=== PATIENT | female | born 1985 | race Caucasian/White ===

== ENCOUNTER → 2020-07-21 02:14 | Outpatient (CLI) | payer OTHER, SELFPAY ==
[2020-07-21 20:23] LABS: SARS-CoV-2 RNA PCR Negative
== END ==
PROVIDERS: PCP Internal Medicine; Visit Provider Obstetrics & Gynecology
DX: Z01.812 Encounter for preprocedural laboratory examination (principal); Z20.822 Contact with and (suspected) exposure to COVID-19
CPT/HCPCS: C9803; U0003; U0005

== ENCOUNTER 2020-07-25 00:45 | Day surgery (SDC) | payer OTHER, SELFPAY ==
[2020-07-16 10:45] VITALS: BMI 23.1
--- NOTE | 2020-07-24 15:37 | WPDANESEPPF ---
Anes - Initial Pre Proc Eval Procedure: Operation Date: 07/25/20 09:00 Proposed Procedures p Laparoscopic Bilateral Tubal Ligation with Cautery, - Everardo Washburn MD s Hysteroscopy with Jamila Endometrial Ablation - Everardo Washburn MD Date/Time: 07/24/20 15:37 Surgeon: Everardo Washburn MD Pre Op Diagnosis: menorrhaghia, sterilization Patient Data Age: 34 Gender: F Height: 1.7 m Weight: 67 kg Allergies Allergy/AdvReac Type Severity Reaction Status Date / Time No Known Allergies Allergy Unverified 07/16/20 10:48 Home Medications Medication Instructions Recorded Confirmed Type escitalopram oxalate 10 mg PO DAILY 07/16/20 07/16/20 History brxpnfghpqno-adg-xgzj-FA-vit K 1 tablet PO DAILY 07/16/20 07/16/20 History [Adults Multivitamin] Patient hx anesthesia problems: none Family hx anesthesia problems: none PMFSH Past Medical History Medical History (Updated 07/24/20 @ 15:38 by Rsahard Edwards MD) Anxiety Depression Family History Family History (Updated 06/15/17 @ 20:56 by DOCTOR UNKNOWN) Mother Family history of osteoporosis Other Diabetes mellitus Family history of cardiovascular disease Family history of malignant neoplasm of breast Social History Social History Smoking status: Never smoker Second hand tobacco smoke exposure: No Alcohol intake: current Substance use: former Living arrangements: with family Gender identity (if verbalized by the patient): Female Spiritual care concerns: No Anes - Eval Final PreProcedure Day of Procedure 07/24/20 15:37 Patient weight: normal Heart: regular rate and rhythm Lungs: clear to auscultation and normal air movement Airway: Mallampati scale class II Neurological: alert and oriented Last oral intake: >/= 8 hours ASA classification: II Emergent: no Anesthetic plan: proceed Anesthesia type and monitoring: general ETT Informed Consent: The patient's anesthetic plan and its attendant risks and benefits were discussed with the patient/family/POA. Questions were solicited and answers provided to the satisfaction of the patient/family/POA.
[2020-07-25] VITALS (8 sets, daily range): BP systolic 100–122; BP diastolic 66–80; PULSE 66–103; RESP 16–20; TEMP 36.4–37.1; O2SAT 99–100
[2020-07-25] MEDS: LACTATED RINGERS 1,000 ML 30 ML IV CONT ×2 (07:45→09:55)
[2020-07-25] MEDS: KETOROLAC 15 MG/ML VIAL (*BKC) IV PUSH (07:58)
[2020-07-25] MEDS: ACETAMINOPHEN 500 MG TABLET 1000 MG PO (07:59)
--- NOTE | 2020-07-25 08:40 | WPDHPUPDATE1 ---
History and Physical Update Update Date/Time: 07/25/20 08:40 History and Physical has been reviewed, including an updated exam of the patient. There are NO changes in the patient's condition. Risks, benefits, and alternatives have been discussed and questions answered. Patient agrees to proceed with procedure.
--- NOTE | 2020-07-25 09:57 | PM.PROC ---
Procedure Note - Detailed Date of procedure: 07/25/20 Pre-op diagnosis: menorrhaghia, sterilization Post-op diagnosis: same Procedure performed: Laparoscopic bilateral tubal ligation, Endometrial Ablation Description of procedure: Patient was taken the operating room. She has prepped draped in the dorsal lithotomy position after induction of general anesthesia. A 5 mm abdominal incision was made in left upper quadrant of the abdomen with scalpel. A 5 mm trocars inserted the intra-abdominal cavity under direct visualization of the scope. Pneumoperitoneum was achieved. A 5 mm periumbilical incision was made using a scalpel on the abdominal scan. A 5 mm trocar was inserted the intra-abdominal cavity under visualization of the scope. The fallopian tube was grasped with the bipolar cautery in the ampullary region. It was completely desiccated in a 1.5 cm area of the fallopian tube. This was performed in identical fashion on the contralateral side. The instruments were withdrawn. The pneumoperitoneum was reduced. The trocars were removed. The skin was closed with subcuticular 4 Monocryl. This incisions were covered with Dermabond. Our attention was then turned to the endometrial ablation portion of the procedure. A speculum was placed in the vagina. The cervix was grasped with a tenaculum. The cervix was dilated to approximately 8 mm with Cruz dilators. The hysteroscope was inserted. And the below findings were noted. Measurements of the cervix were taken using the uterine sound and the hysteroscope. The intrauterine cavity measurements were entered into the hand piece of the device. The device was inserted the intrauterine cavity. The array was expanded. The balloon cuff was inflated. The uterus was airtight. The energy and safety cycles within initiated. They were completed under 3 minutes. The balloon cuff was collapsed, the array was collapsed, and the device was removed the uterine cavity. the hysteroscope was reinserted and the cavity was well desiccated, it was clearly observed. Hysteroscope was withdrawn. The tenaculum was removed. The speculum was removed. The patient tolerated the procedure well. She was taken to recover room in stable condition. Anesthesia: GETA Surgeon: Everardo Washburn MD Estimated blood loss (mL): 10 Drains: No Packing: No Pathology: none sent Complications: No immediate complications Condition: stable Disposition: PACU Findings: Normal female pelvic anatomy.
[2020-07-25] MEDS: fentaNYL CITRATE INJ (*CRX) 100 MCG/2 ML VIAL 25 MCG IV PUSH ×4 (10:19→10:34)
[2020-07-25] MEDS: diphenhydrAMINE HCl CAP 25 MG CAPSULE PO (11:17)
[2020-07-25] MEDS: oxyCODONE HCL (*CRX) 5 MG TAB IR PO (11:17)
== END 2020-07-25 11:37 | disposition home or self-care (01) ==
PROVIDERS: PCP Internal Medicine; Visit Provider Obstetrics & Gynecology
PROC: (CPT 58671; principal; 2020-07-25 09:00)
PROC: 0U5B8ZZ Destruction of Endometrium, Via Natural or Artificial Opening Endoscopic (ICD-10-PCS; CPT 58563; 2020-07-25 09:00)
DX: N92.0 Excessive and frequent menstruation with regular cycle (principal); Z30.2 Encounter for sterilization; F41.8 Other specified anxiety disorders
CPT/HCPCS: 58563; 58670; A9270; C9803; J0330; J1100; J1170; J1885; J2250; J2405; J2704; J3010; J7030; J7120; U0003; U0005

== ENCOUNTER 2022-03-24 12:32 | Emergency (ER) | payer OTHER, SELFPAY ==
--- NOTE | ~2022-03-24 | XR_ITS ---
EXAMINATION: XR chest 2V DATE: 03/24/2022 12:58 INDICATION: Cough and wheezing. TECHNIQUE: Frontal and lateral views of the chest were obtained. COMPARISON: Chest 2 views 08/08/2011 FINDINGS: The chest demonstrates clear lungs without pneumonia, pleural effusion, or pneumothorax. Th e heart size is normal. IMPRESSION: 1. No acute cardiopulmonary disease. Reviewed, dictated and finalized at location A. BITS COORDINATOR
[2022-03-24 12:37] VITALS: BP 123/82; PULSE 63; RESP 20; TEMP 35.8; O2SAT 100
--- NOTE | 2022-03-24 12:37 | ED.URI ---
HPI - URI/Sore Throat General Chief Complaint: Upper Respiratory Infection Stated Complaint: COUGH/HURTS TO BREATHE/FEVER/BODY ACHES/CHILLS Time Seen by Provider: 03/24/22 12:37 Source: patient and RN notes reviewed History of Present Illness HPI Narrative: Patient is a 36-year-old female who presents to urgent care with complaints of cough, body aches, fever, chills. Patient states that last week her whole family was out with flu-like symptoms and a residual cough has gotten worse. Patient states that she had COVID 4 months ago and had a very difficult time getting over the cough and shortness of breath from COVID. Patient has not had a chest x-ray since her breathing issues. Patient states that for the last 4 days her cough has worsened. Patient did a [facility] tele visit 2 days ago and was placed on Tessalon Perles, prednisone and given a refill of her albuterol inhaler. Patient states that she is having pain with deep breathing. No other acute complaints. Denies any recent fevers. No acute distress noted. Patient aware of the plan of care. Some parts of this dictation were generated by voice recognition software and may contain typographical and/or grammatical inaccuracies. Related Data Home Medications Medication Instructions Recorded Confirmed escitalopram oxalate 10 mg tablet 10 mg PO DAILY 07/16/20 03/24/22 aqbuslnfumik-Vn-kaqe-minerals 1 tablet PO DAILY 09/25/21 03/24/22 albuterol sulfate 90 mcg/actuation 2 inh inhalation DIRECTED 03/24/22 03/24/22 aerosol inhaler benzonatate 100 mg capsule 100 mg PO DIRECTED 03/24/22 03/24/22 Allergies Allergy/AdvReac Type Severity Reaction Status Date / Time No Known Allergies Allergy Verified 03/24/22 12:44 Review of Systems Review of Systems: CONSTITUTIONAL: Denies fever, chills, or sweats. Reports of fatigue EYES: Denies visual changes, redness, or discharge. ENT: Reports of postnasal drainage, congestion, mild sore throat CARDIOVASCULAR: Denies chest pain, palpitations, or edema. RESPIRATORY: Reports of cough, congestion, wheezing GASTROINTESTINAL: Denies abdominal pain, nausea, vomiting, or diarrhea. GENITOURINARY: Denies dysuria or hematuria. SKIN: Denies rash or itching. MUSCULOSKELETAL: Denies back pain, joint pain. Reports body aches NEUROLOGIC: Denies headache, numbness, or weakness. All other systems reviewed are negative, except as documented in HPI. [facility] Past Medical History Medical History (Updated 03/24/22 @ 13:14 by JOSE ALBERTO Hodge) Anxiety Depression Surgical History Surgical History (Updated 09/25/21 @ 09:22 by Sandra Gordon MA) H/O cardiac catheterization 2005 H/O tubal ligation tubal ligation/ablation 2020 Family History Family History (Updated 09/25/21 @ 09:21 by Sandra Gordon MA) Father Cirrhosis of liver Alcoholism Cardiac arrest Other Diabetes mellitus Family history of cardiovascular disease Family history of malignant neoplasm of breast Hypertension Social History Social History (Updated 09/25/21 @ 09:20 by Sandra Gordon MA) Smoking status: Never smoker Second hand tobacco smoke exposure: No Alcohol intake: current Substance use: former Additional occupation/education comments: Customer Service Gender identity (if verbalized by the patient): Female Spiritual care concerns: No Comments At the time of my signature, I reviewed and agree with the nursing past medical, surgical, social, and family history. There is no relevant family history pertinent to the patient complaint. Exam Narrative: GENERAL: This is a well-nourished, well-developed patient, in no apparent distress. HEAD: normocephalic, atraumatic. EYES: PERRL. Sclera clear/white. Vision is grossly intact. EARS: External ears normal, auditory canals clear and without drainage, TMs normal without perforation. Hearing grossly intact. NOSE: External nose normal with no obvious nasal discharge
== END 2022-03-24 13:18 | disposition home or self-care (01) ==
PROVIDERS: Emergency Provider Nurse Practitioner Family; PCP Internal Medicine
DX: J40 Bronchitis, not specified as acute or chronic (principal)
CPT/HCPCS: 71046; 99213; G0463

== ENCOUNTER 2023-12-09 14:01 | Emergency (ER) | payer OTHER, SELFPAY ==
--- NOTE | 2023-12-09 14:06 | ED.URI ---
HPI - URI/Sore Throat General Chief Complaint: Upper Respiratory Infection Stated Complaint: SORE THROAT History of Present Illness HPI Narrative: 38 y/o female presented for c/o sore throat, onset yesterday. States she noticed white patches on tonsils yesterday, and today she woke with throat feeling 'on fire.' Started with nasal congestion today. Took Tylenol. Denies difficulty maintaining secretions. Denies cough, sob, n/v/d/f/c. Related Data Home Medications Medication Instructions Recorded Confirmed escitalopram oxalate 10 mg tablet 10 mg PO DAILY 07/16/20 12/09/23 nkespqxtmjdx-Cq-luuu-minerals 1 tablet PO DAILY 09/25/21 12/09/23 albuterol sulfate 90 mcg/actuation 2 inh inhalation DIRECTED 03/24/22 12/09/23 aerosol inhaler Allergies Allergy/AdvReac Type Severity Reaction Status Date / Time No Known Allergies Allergy Verified 12/09/23 14:22 Review of Systems Review of Systems: CONSTITUTIONAL: Denies body aches, fever, chills, or sweats. EYES: Denies visual changes, redness, or discharge. ENT: reports sore throat Denies rhinorrhea, congestion, or otalgia. CARDIOVASCULAR: Denies chest pain, palpitations, or edema. RESPIRATORY: Denies dyspnea. GASTROINTESTINAL: Denies abdominal pain, nausea, vomiting, or diarrhea. SKIN: Denies rash, itching, or wounds. MUSCULOSKELETAL: Denies back pain, joint pain, or myalgia. NEUROLOGIC: Denies headache PMFSH Past Medical History Medical History Anxiety Depression Surgical History Surgical History H/O cardiac catheterization 2005 H/O tubal ligation tubal ligation/ablation 2020 Family History Family History Father Cirrhosis of liver Alcoholism Cardiac arrest Other Diabetes mellitus Family history of cardiovascular disease Family history of malignant neoplasm of breast Hypertension Social History Social History Smoking status: Never smoker Second hand tobacco smoke exposure: No Alcohol intake: current Substance use: former Living arrangements: with family Occupation/Education: occupation Additional occupation/education comments: Customer Service Gender identity (if verbalized by the patient): Female Spiritual care concerns: No Exam Narrative: GENERAL: mildly Ill-appearing, no acute distress. EYES: conjunctivae clear ENT: Mucous membranes moist. TMs pearly dee with normal light reflex bilaterally; no tragal tenderness. Oropharynx severely erythematous without lesions. Tonsils enlarged 2+ with exudate. No drooling, no hoarseness, no trismus, uvula midline. No tripod positioning, hot potato voice, or soft palate swelling. NECK: Supple. bilateral anterior cervical lymphadenopathy CHEST: Clear to auscultation, breath sounds equal. No respiratory distress, speaks in full sentences. HEART: Regular rate and rhythm. No murmur heard. SKIN: Warm, dry, no rash. NEURO: Alert and oriented x3. Course Course Emergency Course: Patient is aware of diagnosis, understands and agrees to treatment plan. Anticipatory guidance given. Patient agrees to follow-up as directed and is aware of reasons to seek care at the emergency department. Portions of this record may have been created with voice recognition software Level of Care: Express Care Visit MDM - URI/Sore Throat MDM Narrative Medical decision making narrative: POS strep result reviewed with pt. Advise supportive treatments. Patient is appropriate for outpatient treatment and follow-up. Differential Diagnosis Differential diagnosis: Likely upper respiratory infection, viral infection and pharyngitis Discharge Plan Discharge Clinical Impression: Strep pharyngitis Patient Disposition: Home, Self-Care Condition: Stable In
[2023-12-09 14:14] VITALS: BP 116/72; PULSE 77; RESP 16; TEMP 36.6; O2SAT 100
== END 2023-12-09 14:26 | disposition home or self-care (01) ==
PROVIDERS: Emergency Provider Nurse Practitioner Family; PCP Internal Medicine
DX: J02.0 Streptococcal pharyngitis (principal); F41.9 Anxiety disorder, unspecified; F32.A Depression, unspecified
CPT/HCPCS: 87880; 99213; G0463

== ENCOUNTER 2024-03-21 16:15 | Emergency (ER) | payer OTHER, SELFPAY ==
[2024-03-21 16:38] VITALS: BP 140/90; PULSE 66; RESP 15; TEMP 36.3; O2SAT 100
--- NOTE | 2024-03-21 16:45 | ED.FEMALEGU ---
HPI - Female Genitourinary General Chief complaint: Urogenital-Female Stated complaint: FLANK PAIN/LOW ABD PAIN/SORE THROAT Time Seen by Provider: 03/21/24 16:45 Source: patient Mode of arrival: ambulatory Limitations: no limitations History of Present Illness HPI Narrative: 38-year-old female presents with complaint of fatigue, body aches, sore throat starting this morning. Patient reports that she has had urinary dysuria, irritation since yesterday. Patient was in hot tub over the weekend and also had intercourse following that. Concerned she may have a yeast infection or urinary tract infection. Tried [id number] Monistat last night with no relief. Afebrile. All systems reviewed and negative except as noted above. Related Data Home Medications Medication Instructions Recorded Confirmed escitalopram oxalate 10 mg tablet 10 mg PO DAILY 07/16/20 03/21/24 hbemrovcagcy-Pk-ccue-minerals 1 tablet PO DAILY 09/25/21 03/21/24 Allergies Allergy/AdvReac Type Severity Reaction Status Date / Time No Known Allergies Allergy Verified 03/21/24 16:33 Review of Systems Review of Systems: CONSTITUTIONAL: Denies fever, chills, or sweats. EYES: Denies visual changes, redness, or discharge. ENT: Denies rhinorrhea, congestion. Reports sore throat. Denied otalgia. CARDIOVASCULAR: Denies chest pain, palpitations, or edema. RESPIRATORY: Denies cough or dyspnea. GASTROINTESTINAL: Denies abdominal pain, nausea, vomiting, or diarrhea. GENITOURINARY: Reports dysuria. Denies hematuria. SKIN: Denies rash or itching. MUSCULOSKELETAL: Denies back pain, joint pain. Reports myalgia. NEUROLOGIC: Denies headache, numbness, or weakness. PSYCHIATRIC: Denies anxiety or depression. All other systems reviewed are negative, except as documented in HPI. [facility] Past Medical History Medical History Anxiety Depression Surgical History Surgical History H/O cardiac catheterization 2005 H/O tubal ligation tubal ligation/ablation 2020 Family History Family History Father Cirrhosis of liver Alcoholism Cardiac arrest Other Diabetes mellitus Family history of cardiovascular disease Family history of malignant neoplasm of breast Hypertension Social History Social History Smoking status: Never smoker Second hand tobacco smoke exposure: No Alcohol intake: current Substance use: former Living arrangements: with family Occupation/Education: occupation Additional occupation/education comments: Customer Service Gender identity (if verbalized by the patient): Female Spiritual care concerns: No Comments At time of signature, agree with nursing past medical, surgical, social and family history. There is no relevant family history pertinent to the presenting complaint. Exam Narrative: GENERAL: This is a well-nourished, well-developed patient, in no apparent distress. HEAD: normocephalic, atraumatic. EYES: PERRL. Sclera clear/white. Vision is grossly intact. EARS: External ears normal, auditory canals clear and without drainage, TMs normal without perforation. Hearing grossly intact. NOSE: External nose normal with no obvious nasal discharge, nares without redness, no rhinorrhea. THROAT: Mucous membranes moist, erythema with mild swelling. No exudates. NECK: Neck supple, non-tender without lymphadenopathy, masses or thyromegaly. CARDIOVASCULAR: Regular rate and rhythm without murmurs, gallops, or rubs. RESPIRATORY: Clear to auscultation. Breath sounds equal bilaterally. No wheezes, rales, or rhonchi. SKIN: warm, Dry, intact with no suspicious lesions or rash, good texture and turgor. NEURO: awake, alert, and oriented to person, place and time. There were no obvious focal neurologic abnormalities. EXTREMITIES: No joint tenderness, effusion, or edema noted. Course Course Level of Care: Express Care Visit Vital Signs Vital signs: Vital Signs Temperature 36.3 C L 03/21/24 16:38 Pulse Rate 66 03/21/24 16:38 Respiratory Rate 15 03/21/24 16:38 Blood Pressure 140/90 03/21/24 16:38 Pulse Oximetry 100 03/21/24 16:38 Oxygen Delivery Room Air 03/21/24 16:38 Temperature 36.3 C L 03/21/24 16:38 Pulse Rate 66 03/21/24 16:38 Respiratory Rate 15 03/21/24 16:38 Blood Pressure 140/90 03/21/24 16:38 Pulse Oximetry 100 03/21/24 16:38 Oxygen Delivery Room Air 03/21/24 16:38 Reviewed MDM - Female Genitourinary MDM Narrative Medical decision making narrative: Patient is aware of diagnosis, understands and agrees to treatment plan. Anticipatory guidance given. Patient agrees to follow-up as directed and is aware of reasons to seek care at the emergency department. Portions of this record may have been created with voice recognition software Positive rapid strep. Patient's urine dip 3+ leukocytes. Urine culture ordered. Will treat patient with Augmentin to treat for both strep throat and urinary tract infection. Differential Diagnosis Differential diagnosis: Likely urinary tract infection Discharge Plan Discharge Clinical Impression: Urinary tract infection, Strep throat Patient Disposition: Home, Self-Care Condition: Stable Instructions: Antibiotic Form, Urinary Tract Infection in Women (ED), Strep Throat (ED) Additional Instructions: Your strep test was positive today. Your COVID and flu test were negative. Your urinalysis showed results concerning for urinary tract infection. Take antibiotic as prescribed until gone. Change toothbrush after taking antibiotic for 24 hours. Take ibuprofen or Tylenol every 6-8 hours as needed for pain. Drink at least 64 oz of water a day. Follow-up with your primary care physician if symptoms are not improving. Prescriptions: New amoxicillin-pot clavulanate [Augmentin] 500-125 mg tablet 1 tablet PO BID 10 Days Qty: 20 0RF fluconazole 150 mg tablet 150 mg PO Q72H Qty: 2 0RF No Action guivnslaotws-Zr-faoe-minerals Tablet 1 tablet PO DAILY escitalopram oxalate 10 mg tablet 10 mg PO DAILY Follow-up/Referrals: Pilar Price MD [Primary Care Provider] - Stand Alone Forms: Work/School Release IP Time of Disposition: 16:55
[2024-03-21 17:36] LABS: EDCOVIDSCREEN Negative (Negative); EDINFLUASCREEN Negative (Negative); EDINFLUBSCREEN Negative (Negative); EDSTREPNEGPOS1 Positive (Negative); EDUAAPPEAR Clear; EDUABILI Negative (Negative); EDUABLOOD Trace (Negative); EDUACOLOR1 Yellow; EDUAGLUCOSE Negative (Negative); EDUAKETONE 1+ (Negative); EDUALEUKO 3+ (Negative); EDUANITRATE Negative (Negative); EDUAPROTEIN 1+ (Negative); EDUAUROBILI 0.2
== END 2024-03-21 17:00 | disposition home or self-care (01) ==
PROVIDERS: Emergency Provider Nurse Practitioner Family; PCP Internal Medicine
DX: N39.0 Urinary tract infection, site not specified (principal); J02.0 Streptococcal pharyngitis; Z20.822 Contact with and (suspected) exposure to COVID-19; F41.9 Anxiety disorder, unspecified; F32.A Depression, unspecified
CPT/HCPCS: 81003; 87081; 87426; 87804; 87880; 99213; G0463

== ENCOUNTER 2025-02-16 12:54 | Emergency (ER) | payer OTHER, SELFPAY ==
[2025-02-16 13:00] VITALS: BP 120/79; PULSE 60; RESP 14; O2SAT 100
[2025-02-16 13:46] LABS: EDCOVIDSCREEN Negative (Negative); EDINFLUASCREEN Negative (Negative); EDINFLUBSCREEN Negative (Negative); EDSTREPNEGPOS1 Negative (Negative)
--- NOTE | 2025-02-16 16:40 | ED_ITS ---
HPI - URI/Sore Throat General Chief Complaint: Upper Respiratory Infection Stated Complaint: Sore Throat Time Seen by Provider: 02/16/25 13:50 Source: patient and RN notes reviewed Mode of arrival: ambulatory Limitations: no limitations History of Present Illness HPI Narrative: [age] year old female presents Express Care complaining of upper respiratory symptoms for approximately 3 days. Patient reports body aches, chills, cough, sore throat, right ear pain, congestion the last 3 days. Patient says symptoms are not improving. Patient denies any fevers, nausea vomiting, diarrhea, abdominal pain, urinary symptoms, chest pain, difficulty breathing, any other upper respiratory symptoms, or any other symptoms. Patient taking [id number] cold/flu medication with some relief. Patient has also been using Afrin to help with congestion. Patient denies any significant past medical problems. Related Data Home Medications ?Medication ?Instructions ?Recorded ?Confirmed ?Last Taken ?Type escitalopram oxalate 10 mg tablet 10 mg PO DAILY 07/1602/16/25 07/24/20 21:00 History buspirone 10 mg tablet mg 02/16/25 Unknown History Allergies Allergy/AdvReac Type Severity Reaction Status Date / Time No Known Allergies Allergy Verified 02/16/25 13:04 Review of Systems Review of Systems: Per HPI All other systems reviewed are negative, except as documented in HPI. [facility] Past Medical History Medical History Depression Anxiety Surgical History Surgical History H/O tubal ligation tubal ligation/ablation 2020 H/O cardiac catheterization 2005 Family History Family History Father Cirrhosis of liver Alcoholism Cardiac arrest Other Diabetes mellitus Family history of cardiovascular disease Family history of malignant neoplasm of breast Hypertension Social History Social History Smoking status: Never smoker Second hand tobacco smoke exposure: No Alcohol intake: current Substance use: former Living arrangements: with family Occupation/Education: occupation Additional occupation/education comments: Customer Service Gender identity (if verbalized by the patient): Female Spiritual care concerns: No Comments At the time of my signature, I reviewed and agree with the nursing past medical, surgical, social, and family history. There is no relevant family history pertinent to the patient complaint. Exam Narrative: GENERAL: This is a well-nourished, well-developed adult, in no apparent distress. They are non ill-appearing, nontoxic appearing. HEAD: normocephalic, atraumatic. EYES: Sclera clear/white. Vision is grossly intact. Conjunctiva normal bilaterally. Extraocular movements intact. EARS: External ears normal, auditory canals clear and without drainage, TMs without erythema or perforation. Hearing grossly intact. NOSE: External nose normal with no obvious nasal discharge, nasal turbinates erythematous, no rhinorrhea. THROAT: Mucous membranes moist, posterior pharynx erythematous without exudate. Uvula is midline. Postnasal drip present. NECK: Neck supple, non-tender without lymphadenopathy, masses or thyromegaly. CARDIOVASCULAR: Regular rate and rhythm without murmurs, gallops, or rubs. RESPIRATORY: Clear to auscultation. Breath sounds equal bilaterally. No wheezes, rales, or rhonchi. SKIN: warm, Dry, intact with no suspicious lesions or rash, good texture and turgor. NEURO: awake, alert, and oriented to person, place and time. There were no ob vious focal neurologic abnormalities. EXTREMITIES: No joint tenderness, effusion, or edema noted. BACK: Nontender without deformity. Course Course Emergency Course: Portions of this record may have been created with voice recognition software Level of Care: Express Care Visit Vital Signs Vital signs: Vital Signs Pulse Rate 60 02/16/25 13:00 Respiratory Rate 14 02/16/25 13:00 Blood Pressure 120/79 02/16/25 13:00 Pulse Oximetry 100 02/16/25 13:00 Oxygen Delivery Room Air 02/16/25 13:00 Pulse Rate 60 02/16/25 13:00 Respiratory Rate 14 02/16/25 13:00 Blood Pressure 120/79 02/16/25 13:00 Pulse Oximetry 100 02/16/25 13:00 Oxygen Delivery Room Air 02/16/25 13:00 MDM - URI/Sore Throat MDM Narrative Medical decision making narrative: Rapid COVID, flu, strep were negative. Throat culture is pending. Symptoms likely viral in etiology. Discussed supportive therapy. Discussed physical exam findings. Advised supportive measures and signs/symptoms to go to the ER. Pt is appropriate for outpt treatment and f/u. Differential Diagnosis Differential diagnosis: Likely upper respiratory infection, otitis media, sinusitis, viral infection and pharyngitis Lab Data Attestation: I reviewed the patient's lab results. Labs: Lab Results 02/16/25 Range/Units 13:44 POC Influenza A Ag Negative (Negative) POC Influenza B Ag Negative (Negative) POC SARS CoV-2 Ag Negative (Negative) POC Grp A Strep Screen Negative (Negative) Discharge Plan Discharge Clinical Impression: Upper respiratory infection Qualifiers: URI type: unspecified viral URI Qualified Code(s): J06.9 - Acute upper respiratory infection, unspecified Patient Disposition: Home Condition: Stable Instructions: Upper Respiratory Infection (ED) Additional Instructions: Your rapid strep swab was negative today at [facility]. You will be notified in a few days if the culture comes back positive for strep, and appropriate antibiotics will be called in for you at that time. Your symptoms are likely due to a viral illness, which is not treated with antibiotics. Viral symptoms can be present for up to 10-14 days. Take Tylenol ibuprofen as needed for fever or pain, follow instructions on the bottle. Do not take any additional Tylenol if your taking DayQuil and NyQuil or its generics, as it already contains Tylenol in it. May do Flonase 2 sprays each nostril daily to help with congestion or you may also try azelastine antihistamine spray 2 sprays each nostril daily. Do not use Afrin for more than 3 days in a row were will cause rebound congestion. Rest and stay hydrated. Follow up with your PCP in 3-5 days if symptoms are not improving. Go to the ER immediately if you developed chest pain, nausea, vomiting, difficulty breathing or swallowing, fevers, or any serious concerns. Patient Language: Nauruan Prescriptions: No Action buspirone 10 mg tablet escitalopram oxalate 10 mg tablet 10 mg PO DAILY Follow-up/Referrals: Pilar Price MD [Primary Care Provider, Internal Medicine] Time of Disposition: 14:11
== END 2025-02-16 14:15 | disposition home or self-care (01) ==
PROVIDERS: PCP Internal Medicine
DX: J06.9 Acute upper respiratory infection, unspecified (principal); Z20.822 Contact with and (suspected) exposure to COVID-19; F41.9 Anxiety disorder, unspecified; F32.A Depression, unspecified
CPT/HCPCS: 87081; 87426; 87804; 87880; 99213; G0463